=== PATIENT | female | born 2000 | race Hispanic/Latino ===

== ENCOUNTER 2022-12-14 21:27 | Emergency (ER) | payer OTHER ==
[~2022-12-14] VITALS: Ht 172.7 cm; Wt 69.9 kg
[2022-12-14] MEDS ORDERED: IBUPROFEN 600 MG TAB PO STA (21:46)
[2022-12-14] MEDS ORDERED: IBUPROFEN 600 MG TAB ONE (22:09)
[2022-12-14 22:40] VITALS: BP 124/78
== END 2022-12-14 22:40 | disposition home or self-care (01) ==
LOC: FSED 21:30
DX: S90.121A Contusion of right lesser toe(s) without damage to nail, initial encounter (principal); W20.8XXA Other cause of strike by thrown, projected or falling object, initial encounter; Y92.89 Other specified places as the place of occurrence of the external cause
CPT/HCPCS: 99283